=== PATIENT | male | born 1965 | race Caucasian/White ===

== ENCOUNTER 2021-07-11 07:49 | Day surgery (SDC) | payer MEDICARE, MEDICAID, SELFPAY ==
[2021-07-10 11:09] VITALS: BMI 32.5
--- NOTE | 2021-07-10 11:57 | HO.ANESPROP2 ---
HPI - Anesthesia Eval Consult details Narrative: 56yo M for Upper Endoscopy and Colonoscopy Eliquis for afib s/p gastric bypass 2020 [facility] Past Medical History Medical History (Updated 07/10/21 @ 11:06 by Serene Godfrey RN) GERD (gastroesophageal reflux disease) History of atrial fibrillation HTN (hypertension) Hx of chronic kidney disease Nephrolithiasis Obstructive sleep apnea Pituitary adenoma Surgical History Surgical History (Updated 07/10/21 @ 11:08 by Serene Godfrey RN) History of gastric bypass Hx of knee surgery Status post surgical removal of neoplasm of skin Social History Social History Patient Tobacco Use Status: Current someday Tobacco user Tobacco use type: Cigarette Use of substances other than those prescribed or required for medical reasons: No Are you DNR?: No Advance Directives: No Advance Directives Information Provided: Yes Meds Allergies Allergy/AdvReac Type Severity Reaction Status Date / Time No Known Allergies Allergy Verified 07/10/21 11:08 Home Medications Medication Instructions Recorded Confirmed Last Taken Type apixaban 5 mg tablet (Eliquis) 1 tab PO BID 07/10/21 07/10/21 07/06/21 History cabergoline 0.5 mg tablet 1 tab PO 2XW 07/10/21 07/10/21 Unknown History metoprolol tartrate 25 mg tablet 3 tab PO BID 07/10/21 07/10/21 Unknown History omeprazole 20 mg capsule,delayed 2 cap PO DAILY 07/10/21 07/10/21 Unknown History release tamsulosin 0.4 mg capsule 1 cap PO DAILY 07/10/21 07/10/21 Unknown History temazepam 30 mg capsule 1 cap PO BEDTIME PRN 07/10/21 07/10/21 Unknown History zolpidem 10 mg tablet 1 tab PO BEDTIME 07/10/21 07/10/21 Unknown History Exam Exam Date and Time: July 10, 2021 1157 Height,Weight and Vital Signs: Height 6 ft Weight 108.862 kg Assessment and Plan Assessment Anesthesia Assessment: Chart Reviewed
[2021-07-11 08:37] VITALS: BP 179/94; PULSE 59; RESP 16; TEMP 36.9; O2SAT 99
--- NOTE | 2021-07-11 08:43 | P.CONAN_ITS ---
FORMERLY [facility], [facility] Past Medical History Medical History (Updated 07/10/21 @ 11:06 by Serene Godfrey RN) GERD (gastroesophageal reflux disease) History of atrial fibrillation HTN (hypertension) Hx of chronic kidney disease Nephrolithiasis Obstructive sleep apnea Pituitary adenoma Family History Family history of problems with anesthesia: No Surgical History Surgical History (Updated 07/10/21 @ 11:08 by Serene Godfrey RN) History of gastric bypass Hx of knee surgery Status post surgical removal of neoplasm of skin History of Problems with Anesthesia: No Social History Social History Patient Tobacco Use Status: Current someday Tobacco user Tobacco use type: Cigarette Use of substances other than those prescribed or required for medical reasons: No Are you DNR?: No Advance Directives: No Advance Directives Information Provided: Yes Meds Allergies Allergy/AdvReac Type Severity Reaction Status Date / Time No Known Allergies Allergy Verified 07/10/21 11:08 Active Medications: Current Medications Lactated Ringer's (Lr) 1,000 mls @ 100 mls/hr IVCONT .Q10H TAM Home Medications Medication Instructions Recorded Confirmed Last Taken Type apixaban 5 mg tablet (Eliquis) 1 tab PO BID 07/10/21 07/10/21 07/06/21 History cabergoline 0.5 mg tablet 1 tab PO 2XW 07/10/21 07/10/21 Unknown History metoprolol tartrate 25 mg tablet 3 tab PO BID 07/10/21 07/10/21 Unknown History omeprazole 20 mg capsule,delayed 2 cap PO DAILY 07/10/21 07/10/21 Unknown History release tamsulosin 0.4 mg capsule 1 cap PO DAILY 07/10/21 07/10/21 Unknown History temazepam 30 mg capsule 1 cap PO BEDTIME PRN 07/10/21 07/10/21 Unknown History zolpidem 10 mg tablet 1 tab PO BEDTIME 07/10/21 07/10/21 Unknown History Exam Exam Date and Time: July 11, 2021 0843 Height,Weight and Vital Signs: Height 6 ft Weight 108.862 kg Last Vital Signs Temp 98.4 F 07/11/21 08:37 Pulse 59 07/11/21 08:37 Resp 16 07/11/21 08:37 BP 179/94 H 07/11/21 08:37 Pulse Ox 99 07/11/21 08:37 Assessment and Plan Assessment Anesthesia Assessment: Anesthesia Plan Discussed and Chart Reviewed Final Anesthetic Review Family History of Problems with Anesthesia: No History of Problems with Anesthesia: No NPO: Yes ASA Class: II Final Preanesthetic Review: No Changes in Pt Med Stat, Meds/Allgs Chart Reviewed , Consent Obtained/Reviewed and Anes Risks/Benef Reviewed Patient Risk: Intermediate Procedure Risk: Low Anesthetic Plan Anesthetic Plan: MAC: Disposition: Standard PACU
[2021-07-11] MEDS: Lactated Ringers 1,000 ML 100 ML IVCONT (08:54)
--- NOTE | 2021-07-11 10:07 | MHC.SHP ---
Pre-Procedural Eval Section A Date of Service: 07/11/21 Section B Chief Complaint: reflux disease,fecal abnormailities Details of Present Illness: see H&P no changes Relevant Family History (Specify if Yes): No Relevant Social History: None Present Medications: see Short Stay Collaborative assessment Medical History: No relevant PMH History of Previous Operations: No relevant previous surgery Allergies: Allergies Allergy/AdvReac Type Severity Reaction Status Date / Time No Known Allergies Allergy Verified 07/10/21 11:08 Review of Systems Sugical H&P ROS: Negative: Constitution, Cardiovascular, Respiratory, Neurological, Psychiatric, Hem-Onc, Allergic/Immunologic, Gastrointestinal, Genitourinary, Musculoskeletal, Integumentary, Endocrine and Eyes/Ears/Nose/Throat Exam Surgical H&P Exam: Normal: HEENT, Normal: Heart, Normal: Lungs, Normal: Extremities, Normal: Abdomen, Normal: Skin and Normal: Neurological Plan Diagnosis/Plan: Unchanged I have reviewed the history and physical and performed a pertinent physical examination on my patient. No changes have occurred unless specified.
[2021-07-11 10:56] VITALS: BP 124/83; PULSE 91; RESP 16; TEMP 36.6; O2SAT 98
--- NOTE | 2021-07-11 11:04 | PM.OP ---
Brief Operative Note Date of Service: 07/11/21 Pre-op diagnosis: gerd, positive cologaurd test Post-op diagnosis: same (same, colon polyps) Procedure: egd, colonoscopy Surgeon: David March Anesthesia: MAC Was an Distribution Operations Manager used for this Procedure?: No Estimated blood loss (mL): 5 Pathology: other (see req)
[2021-07-11 11:11] VITALS: BP 168/87; PULSE 60; RESP 16; TEMP 36.7; O2SAT 100
[2021-07-11 11:19] VITALS: TEMP 36.8
--- NOTE | 2021-07-11 21:40 | OP_ITS ---
SURGEON: David March MD INDICATIONS: Gastroesophageal reflux disease and positive Cologuard test. PREOPERATIVE DIAGNOSIS: POSTOPERATIVE DIAGNOSIS: PROCEDURE PERFORMED: 1. Upper endoscopy with biopsy. 2. Colonoscopy to the terminal ileum with snare polypectomy and biopsy. ESTIMATED BLOOD LOSS: COMPLICATIONS: ANESTHESIA: ASSISTANTS: SPECIMENS: MEDICATIONS: Monitored anesthesia care. DESCRIPTION OF PROCEDURE: History and physical were performed. The risks and benefits of the procedure were explained to the patient. Informed consent was obtained. The patient was placed in the left lateral decubitus position. A digital rectal exam was performed prior to the colonoscopy. 1st the Olympus video gastroscope was introduced into the esophagus, stomach, and duodenum. Examination was performed. The scope was removed. He was repositioned for colonoscopy. Digital rectal exam was performed and was found to be normal. The Olympus pediatric video colonoscope was introduced into the rectum and advanced to the cecum without difficulty. The cecum was identified by transillumination, palpation, and identification of ileocecal valve. Examination was performed. The scope was removed. He tolerated both procedures well and was returned to recovery area in stable condition. FINDINGS: UPPER ENDOSCOPY: Esophagus: The esophagus showed a slightly irregular EG junction. There was no esophagitis. Biopsies were obtained from the EG junction. Stomach: The stomach showed surgical changes consistent was prior history of sleeve surgery. There were linear streaks of erythema mainly in the antrum consistent with mild gastritis. Antral biopsies were obtained. Duodenum: The bulb and second portion were normal. COLONOSCOPY: The terminal ileum was examined and appeared normal. Visualized colonic mucosa was normal. The quality of the prep was fair with some liquid stool coating the mucosa. This limited sensitivity examination for detection of small polyps and was washed and suctioned as best possible. Three polyps were identified, 2 in the right colon measuring under 10 mm. These were removed with a snare. At 40 cm from the anal verge, was a less than 5 mm polyp, which was removed with a biopsy forceps. There was mild sigmoid diverticulosis. Retroflexed examination showed some small internal hemorrhoids. IMPRESSION: 1. Gastroesophageal reflux disease. 2. Colon polyps. RECOMMENDATION: Follow up the biopsy results. MD LUIS Bennett/ARSENIO / [id number] [facility]
== END 2021-07-11 11:56 | disposition home or self-care (01) ==
PROVIDERS: PCP Internal Medicine Geriatric Medicine; Visit Provider Internal Medicine Gastroenterology
PROC: (CPT 45385; principal; 2021-07-11 09:20)
DX: R19.5 Other fecal abnormalities (principal); D12.2 Benign neoplasm of ascending colon; K63.5 Polyp of colon; K57.30 Diverticulosis of large intestine without perforation or abscess without bleeding; K64.8 Other hemorrhoids; K21.9 Gastro-esophageal reflux disease without esophagitis; K29.50 Unspecified chronic gastritis without bleeding; I12.9 Hypertensive chronic kidney disease with stage 1 through stage 4 chronic kidney disease, or unspecified chronic kidney disease; I48.91 Unspecified atrial fibrillation; G47.33 Obstructive sleep apnea (adult) (pediatric); D35.2 Benign neoplasm of pituitary gland; N18.9 Chronic kidney disease, unspecified; Z79.01 Long term (current) use of anticoagulants; Z79.899 Other long term (current) drug therapy; F17.210 Nicotine dependence, cigarettes, uncomplicated; Z98.84 Bariatric surgery status; Z87.442 Personal history of urinary calculi
CPT/HCPCS: 45385; 45380; 43239; 88305; 88342; J2250

== ENCOUNTER 2021-09-14 10:14 | Outpatient (REF) | payer MEDICARE, MEDICAID, SELFPAY ==
--- NOTE | ~2021-09-14 | FL_ITS ---
EXAMINATION: FL BARIUM SWALLOW CLINICAL INFORMATION: Dysphagia. Prior history gastric bypass. COMPARISON: None TECHNIQUE: Barium swallow examination is performed using fluoroscopic evaluation in addition to multiple fluoroscopic spot views, including cine images during swallowing. The patient is imaged both upright and prone and using both thick and thin sulfate along with effervescent granules. Fluoroscopy time: 0.9 minutes DAP: 2.299 Gycm2 Images: 36 FINDINGS: Swallowing function is normal and there is no aspiration. The cervical esophagus has no web or diverticulum or stricture. The cervical thoracic junction appears normal. The thoracic esophagus shows normal motility with no obstruction, stricture, or ulceration. There is a small intermittent sliding hiatal hernia only seen during prone Valsalva maneuver. No gastroesophageal reflux demonstrated during the exam nor during the water siphon test. A cursory view of the upper abdomen shows no gastric outlet obstruction. FL/FL barium swallow IMPRESSION: -Small intermittent sliding hiatal hernia during prone Valsalva maneuver. -Otherwise normal study.
== END 2021-09-14 10:15 | disposition home or self-care (01) ==
LOC: HO.XRAY 10:14
PROVIDERS: PCP Internal Medicine Geriatric Medicine; Visit Provider Internal Medicine Gastroenterology
DX: R13.19 Other dysphagia (principal)
CPT/HCPCS: 74220